=== PATIENT | male | born 1945 | race Caucasian/White ===

== ENCOUNTER → 2017-07-20 15:04 | Outpatient (CLI) | payer MEDICARE, OTHER ==
[2012-03-06 14:04] VITALS: BMI 32.9
== END | disposition home or self-care (01) ==
LOC: D.US 15:04
DX: I12.9 Hypertensive chronic kidney disease with stage 1 through stage 4 chronic kidney disease, or unspecified chronic kidney disease (principal); N18.3 Chronic kidney disease, stage 3 (moderate); Z68.30 Body mass index [BMI] 30.0-30.9, adult

== ENCOUNTER 2020-01-11 05:41 | Day surgery (SDC) | payer MEDICARE, OTHER ==
[~2020-01-11] VITALS: Ht 190.5 cm; Wt 115.2 kg
[~2020-01-11 05:41] MED LIST: CRESTOR20 MG PO; NORVASC5 MG PO; OMEPRAZOLE20 M1 PO; TOPROL XL100 MG PO; ULTRAM50 MG PO; ZYLOPRIM100 MG PO
[2020-01-11 06:24] LABS: ANION GAP 13.9 mmol/L (8-16); CREATININE - SERUM 1.7 mg/dL (0.6-1.3); POTASSIUM - SERUM 4.9 mmol/L (3.5-5.1)
[2020-01-11 06:27] LABS: HEMATOCRIT 47.1 % (42.0-54.0); HEMOGLOBIN 15.3 g/dL (13.5-17.5); MCH 29.2 pg (26.0-34.0); MCHC 32.5 g/dL (31.0-37.0); MCV 89.9 fL (80.0-100.0); MEAN PLATELET VOLUME 9.5 fL (7.4-10.4); RBC 5.24 10x6/uL (4.20-6.10); RDW 13.6 % (11.5-14.5); WBC 7.4 10x3/uL (4.8-10.8)
[2020-01-11 06:38] VITALS: BP 150/85; Ht 190.5 cm; Wt 115.2 kg
[2020-01-11] MEDS ORDERED: HYDROCODON-ACE1 EA10 PO (07:13)
--- NOTE | 2020-01-12 08:02 | OP ---
PATIENT NAME: FEMI BROWN MEDICAL RECORD: [id number] :47 LOCATION:[facility] ADMISSION DATE: SURGEON: ALDO CORDOVA DO DATE OF OPERATION: 01/11/2020 PROCEDURE PERFORMED: Excision of ganglion cyst and A1 ronel release on the right index finger. PREOPERATIVE DIAGNOSIS: Ganglion cyst of the right index finger. POSTOPERATIVE DIAGNOSIS: Ganglion cyst of the right index finger. INDICATIONS: Mr. Brown is a 74-year-old male who presented to my office with a large cyst in the index finger flexor tendon sheath, right at the A1 ronel. He said it kept getting larger and bothering him. 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 I told him we could remove that and I would open the A1 ronel to prevent it from returning. He was okay with that. He was aware of the risks including infection, bleeding, damage to nerves in the area, loss of motion of the finger, continued pain, recurrence of the cyst and he signed the consent. SURGEON: Aldo Cordova DO DESCRIPTION OF PROCEDURE: The patient was taken to the operative suite, laid in supine position, given 2 grams of Ancef and sedated and intubated. An LMA was placed. Right upper extremity was then prepped and draped in sterile fashion. A timeout was performed and everyone was in agreeance with the correct site, side, patient and procedure. I then began by exsanguinating the right upper extremity and tourniquet was inflated to 250 mmHg, it was up for 6 minutes. We then made a longitudinal incision over the cyst and made careful dissection down to it with Ragnells and pickup and scissors and removed the cyst and then opened the A1 ronel as I saw that the cyst was coming right off of the flexor tendon sheath at the A1 ronel as he had a tear in it. The tourniquet was then let down. Bleeding was cleared with a bipolar. He was then injected with 10 mL of 0.25% Marcaine with epinephrine and then closed by Raudel Maldonado, certified surgical first coat operator with horizontal mattresses with 4-0 nylon. He was then dressed with Adaptic, 4 x 4s, cast padding and a Coban lightly wrap. He was awakened and taken to recovery in stable condition. BLOOD LOSS: Minimal. COMPLICATIONS: None. TRANSINT:[id number] Voice Confirmation ID: [id number] DOCUMENT ID: [id number] ALDO CORDOVA DO at 0802 CC: [id number] DICTATION DATE: 01/11/20850 QUITLINE COUNSELOR: 01/11/20 1641 [facility] 01/11/20 [place] [id number]
== END 2020-01-11 09:15 | disposition home or self-care (01) ==
LOC: D.OPS 05:41 → D.PAN 07:00 → D.OPS 09:15
PROVIDERS: Anesthesiology; ATTEND Orthopaedic Surgery
DX: M67.441 Ganglion, right hand (principal); K21.9 Gastro-esophageal reflux disease without esophagitis